=== PATIENT | female | born 1945 | race Caucasian/White ===

== ENCOUNTER → 2016-06-22 | Outpatient (CLI) | payer OTHER ==
[~2016-06-22] MED LIST: AMLO10TA2 PO; ASPI-231 PO; DIPH50TA9 PO; FLUO10CA15 PO; FURO40TA4 PO; INSLISPI SC; ISOS30TA17 PO; LEVO75TA6 PO; LIDO5DIS21 TOP; MET50T PO; NOR10T PO; NORT25CA OR; PANT40TA2 PO; PRAV20TA3 OR
[2016-06-22 12:42] LABS: Urine Bilirubin Negative (Negative); Urine Blood Negative /uL (Negative); Urine Color Yellow (Yellow); Urine Glucose Normal (Normal); Urine Ketone Negative (Negative); Urine Nitrite Negative (Negative); Urine RBC <1 /hpf (0 - 4); Urine Urobilinogen Normal (Negative)
== END | disposition home or self-care (01) ==
LOC: LAB 11:01
PROVIDERS: ATTEND Internal Medicine
DX: N39.0 Urinary tract infection, site not specified (principal)
CPT/HCPCS: 81001

== ENCOUNTER → 2016-11-16 | Outpatient (CLI) | payer OTHER | END | disposition home or self-care (01) | LOC: XY 14:01 | PROVIDERS: ATTEND Internal Medicine | DX: I70.90 Unspecified atherosclerosis (principal); R42 Dizziness and giddiness | CPT/HCPCS: 93886 ==

== ENCOUNTER 2017-06-17 11:32 | Emergency (ER) | payer MEDICARE, OTHER ==
[~2017-06-17] VITALS: Ht 172.7 cm; Wt 108.0 kg
[2017-06-17] MEDS ORDERED: ASPirin 81 mg TAB PO ONE (12:30)
[2017-06-17 12:59] LABS: Basophils # (auto) 0.1 uL; Basophils % (auto) 0.6 % (0.0-2.0); Eosinophils # (auto) 0.1 uL; Eosinophils % (auto) 0.5 % (0.0-7.0); Hematocrit 46.8 % (36.0-46.0); Hemoglobin 15.4 g/dL (12.2-16.2); Lymphocytes # (auto) 3.6 uL; Lymphocytes % (auto) 31.8 % (10.0-50.0); Mean Corpuscular Hemoglobin 27.8 pg (28.0-32.0); Mean Corpuscular Hgb Conc. 32.9 g/dL (32.0-36.0); Mean Corpuscular Volume 84.5 fL (80.0-100.0); Monocytes # (auto) 0.9 uL; Monocytes % (auto) 7.7 % (0.0-12.0); Neutrophils # (auto) 6.7 uL; Neutrophils % (auto) 59.4 % (37.0-80.0); Platelet Count (auto) 395 10^3/uL (140-450); Red Blood Cells 5.53 10^6/uL (4.0-5.20); Red Cell Distribution Width 13.7 % (11.8-14.3); White Blood Cell 11.2 10^3/uL (4.4-10.8)
[2017-06-17 13:20] LABS: Alanine Aminotransferase 18 U/L (13-56); Albumin 4.2 g/dL (3.4-5.0); Alkaline Phosphatase 108 U/L (45-117); Anion Gap 14 (5-15); Aspartate Aminotransferase 18 U/L (15-37); BUN/Creatinine Ratio 12.4; Bilirubin, Total 0.5 mg/dL (0.2-1.0); Blood Urea Nitrogen 20 mg/dL (7-18); Calcium 9.2 mg/dL (8.5-10.1); Carbon Dioxide 26 mmol/L (21-32); Chloride 89 mmol/L (98-107); GFR African American 41 mL/min; GFR Non-African American 34 mL/min; Glucose 224 mg/dL (74-106); Magnesium 1.9 mg/dL (1.6-2.6); Potassium 3.6 mmol/L (3.5-5.1); Sodium 129 mmol/L (136-145); Total Protein 9.1 g/dL (6.4-8.2)
[2017-06-17 14:07] VITALS: BP 170/79
== END 2017-06-17 14:24 | disposition home or self-care (01) ==
LOC: ER 11:32
DX: R07.89 Other chest pain (principal); I11.0 Hypertensive heart disease with heart failure; I50.9 Heart failure, unspecified; I25.2 Old myocardial infarction; E07.89 Other specified disorders of thyroid; E11.9 Type 2 diabetes mellitus without complications; Z86.73 Personal history of transient ischemic attack (TIA), and cerebral infarction without residual deficits; Z85.820 Personal history of malignant melanoma of skin; Z79.899 Other long term (current) drug therapy; Z90.710 Acquired absence of both cervix and uterus; Z90.89 Acquired absence of other organs
CPT/HCPCS: 36415; 71046; 80053; 83735; 84484; 85025; 93005

== ENCOUNTER → 2017-07-11 | Outpatient (CLI) | payer OTHER ==
[2017-07-11 10:55] LABS: Basophils # (auto) 0 uL; Basophils % (auto) 0.5 % (0.0-2.0); Eosinophils # (auto) 0.2 uL; Eosinophils % (auto) 1.9 % (0.0-7.0); Hematocrit 41.6 % (36.0-46.0); Hemoglobin 13.6 g/dL (12.2-16.2); Lymphocytes # (auto) 3.4 uL; Lymphocytes % (auto) 38.8 % (10.0-50.0); Mean Corpuscular Hemoglobin 27.8 pg (28.0-32.0); Mean Corpuscular Hgb Conc. 32.8 g/dL (32.0-36.0); Mean Corpuscular Volume 84.7 fL (80.0-100.0); Monocytes # (auto) 0.6 uL; Monocytes % (auto) 6.5 % (0.0-12.0); Neutrophils # (auto) 4.6 uL; Neutrophils % (auto) 52.3 % (37.0-80.0); Nucleated Red Blood Cells % 0.1 %; Platelet Count (auto) 378 10^3/uL (140-450); Red Blood Cells 4.91 10^6/uL (4.0-5.20); Red Cell Distribution Width 13.7 % (11.8-14.3); White Blood Cell 8.7 10^3/uL (4.4-10.8)
[2017-07-11 11:28] LABS: Urine Bacteria NONE SEEN /hpf (None Seen); Urine Blood Negative /uL (Negative); Urine Specific Gravity 1.022 (1.001-1.035); Urine WBC 1 /hpf (0 - 5)
[2017-07-11 14:21] LABS: Albumin 3.6 g/dL (3.4-5.0); BUN/Creatinine Ratio 18.5; Bilirubin, Total 0.5 mg/dL (0.2-1.0); Potassium 4.5 mmol/L (3.5-5.1); Total Protein 7.9 g/dL (6.4-8.2)
== END | disposition home or self-care (01) ==
LOC: LAB 10:33
PROVIDERS: ATTEND Physician Assistant
DX: I10 Essential (primary) hypertension (principal); E11.65 Type 2 diabetes mellitus with hyperglycemia; M17.12 Unilateral primary osteoarthritis, left knee; Z79.4 Long term (current) use of insulin
CPT/HCPCS: 36415; 80053; 80061; 81001; 83036; 85025

== ENCOUNTER → 2017-07-13 | Outpatient (CLI) | payer OTHER | END | disposition home or self-care (01) | LOC: LAB 15:03 | PROVIDERS: ATTEND Physician Assistant | DX: Z00.01 Encounter for general adult medical examination with abnormal findings (principal); I10 Essential (primary) hypertension; E11.9 Type 2 diabetes mellitus without complications | CPT/HCPCS: 82270 ==

== ENCOUNTER → 2017-08-11 | Outpatient (CLI) | payer OTHER | END | disposition home or self-care (01) | LOC: LAB 12:16 | PROVIDERS: ATTEND Physician Assistant | DX: Z00.01 Encounter for general adult medical examination with abnormal findings (principal); E11.3393 Type 2 diabetes mellitus with moderate nonproliferative diabetic retinopathy without macular edema, bilateral; I10 Essential (primary) hypertension; Z79.4 Long term (current) use of insulin | CPT/HCPCS: 82043 ==

== ENCOUNTER → 2017-09-21 | Outpatient (CLI) | payer OTHER ==
[2017-09-21 15:38] LABS: Basophils # (auto) 0.1 uL; Basophils % (auto) 0.6 % (0.0-2.0); Eosinophils # (auto) 0.3 uL; Eosinophils % (auto) 3.5 % (0.0-7.0); Hematocrit 43.2 % (36.0-46.0); Hemoglobin 14.1 g/dL (12.2-16.2); Lymphocytes % (auto) 36.4 % (10.0-50.0); Mean Corpuscular Hemoglobin 27.8 pg (28.0-32.0); Mean Corpuscular Hgb Conc. 32.6 g/dL (32.0-36.0); Mean Corpuscular Volume 85.5 fL (80.0-100.0); Monocytes # (auto) 0.7 uL; Monocytes % (auto) 8.1 % (0.0-12.0); Neutrophils # (auto) 4.3 uL; Neutrophils % (auto) 51.4 % (37.0-80.0); Nucleated Red Blood Cells % 0.1 %; Platelet Count (auto) 393 10^3/uL (140-450); Red Blood Cells 5.06 10^6/uL (4.0-5.20); Red Cell Distribution Width 13.7 % (11.8-14.3); White Blood Cell 8.4 10^3/uL (4.4-10.8)
[2017-09-21 16:03] LABS: Albumin 3.9 g/dL (3.4-5.0); BUN/Creatinine Ratio 14.8; Bilirubin, Total 0.4 mg/dL (0.2-1.0); CRP High Sensitivity 0.26 mg/dL (< 0.3); Calcium 9.2 mg/dL (8.5-10.1); Potassium 4.1 mmol/L (3.5-5.1)
[2017-09-21 16:07] LABS: Urine Bacteria FEW /hpf (None Seen); Urine Blood Negative /uL (Negative); Urine Hyaline Cast FEW /lpf (0 - 2); Urine Specific Gravity 1.013 (1.001-1.035); Urine WBC 7 /hpf (0 - 5)
[2017-09-21 16:10] LABS: Free T3 2.71 pg/mL (2.3-4.2); Free T4 (Free Thyroxine) 1.28 ng/dL (0.89-1.76); T3 Total 1.1 ng/mL (0.60-1.81)
== END | disposition home or self-care (01) ==
LOC: LAB 15:13
PROVIDERS: ATTEND Internal Medicine
DX: I10 Essential (primary) hypertension (principal); E78.5 Hyperlipidemia, unspecified; E11.65 Type 2 diabetes mellitus with hyperglycemia; Z79.4 Long term (current) use of insulin
CPT/HCPCS: 36415; 80053; 80061; 81001; 82306; 82607; 83036; 84439; 84443; 84480; 84481; 85025; 86141

== ENCOUNTER → 2017-10-23 | Outpatient (CLI) | payer OTHER ==
[~2017-10-23] VITALS: Ht 172.7 cm; Wt 111.1 kg
[~2017-10-23] MED LIST changes: +ADENOSINE 93 MG in GIVE UN-DILUTED 0 ML IV ONE
[2017-10-23 11:13] VITALS: BP 149/58
[2017-10-23 11:35] VITALS: BP 149/58
== END | disposition home or self-care (01) ==
LOC: XY 09:34
PROVIDERS: ATTEND Internal Medicine
DX: I25.10 Atherosclerotic heart disease of native coronary artery without angina pectoris (principal); E11.9 Type 2 diabetes mellitus without complications; I10 Essential (primary) hypertension; E78.5 Hyperlipidemia, unspecified; Z79.4 Long term (current) use of insulin
CPT/HCPCS: 78452; 93017; A9500; J0153

== ENCOUNTER → 2017-10-31 | Outpatient (CLI) | payer OTHER ==
[~2017-10-31] MED LIST changes: -ADENOSINE 93 MG in GIVE UN-DILUTED 0 ML IV ONE
== END ==
LOC: XYW 08:43
PROVIDERS: ATTEND Internal Medicine
DX: I25.10 Atherosclerotic heart disease of native coronary artery without angina pectoris (principal); I11.0 Hypertensive heart disease with heart failure; E78.5 Hyperlipidemia, unspecified; E03.9 Hypothyroidism, unspecified; E11.65 Type 2 diabetes mellitus with hyperglycemia; E11.22 Type 2 diabetes mellitus with diabetic chronic kidney disease; Z79.899 Other long term (current) drug therapy
CPT/HCPCS: 93306

== ENCOUNTER → 2018-05-23 | Outpatient (CLI) | payer OTHER ==
[~2018-05-23] MED LIST changes: +AMLO10TA12 PO; -AMLO10TA2 PO
[2018-05-23 14:47] LABS: Basophils # (auto) 0 uL; Basophils % (auto) 0.6 % (0.0-2.0); Eosinophils # (auto) 0.3 uL; Eosinophils % (auto) 4.1 % (0.0-7.0); Hematocrit 41.8 % (36.0-46.0); Hemoglobin 13.8 g/dL (12.2-16.2); Lymphocytes # (auto) 2.3 uL; Lymphocytes % (auto) 31.7 % (10.0-50.0); Mean Corpuscular Hemoglobin 28.2 pg (28.0-32.0); Mean Corpuscular Volume 85.3 fL (80.0-100.0); Monocytes # (auto) 0.6 uL; Monocytes % (auto) 8.2 % (0.0-12.0); Neutrophils % (auto) 55.4 % (37.0-80.0); Nucleated Red Blood Cells % 0.1 %; Platelet Count (auto) 406 10^3/uL (140-450); Red Cell Distribution Width 13.8 % (11.8-14.3); White Blood Cell 7.3 10^3/uL (4.4-10.8)
[2018-05-23 15:02] LABS: Urine Bacteria NONE SEEN /hpf (None Seen); Urine Blood Negative /uL (Negative); Urine Specific Gravity 1.014 (1.001-1.035); Urine WBC 1 /hpf (0 - 5)
[2018-05-23 15:24] LABS: Albumin 3.5 g/dL (3.4-5.0); Calcium 8.6 mg/dL (8.5-10.1); Potassium 4.1 mmol/L (3.5-5.1)
[2018-05-23 15:29] LABS: BUN/Creatinine Ratio 15.6; Bilirubin, Total 0.4 mg/dL (0.2-1.0); CRP High Sensitivity 0.67 mg/dL (< 0.3); Total Protein 7.6 g/dL (6.4-8.2)
[2018-05-23 15:32] LABS: Free T4 (Free Thyroxine) 1.37 ng/dL (0.89-1.76)
[2018-05-23 15:33] LABS: T3 Total 1.08 ng/mL (0.60-1.81)
== END | disposition home or self-care (01) ==
LOC: LAB 13:54
PROVIDERS: ATTEND Internal Medicine
CPT/HCPCS: 36415; 80053; 80061; 81001; 82306; 82607; 83036; 84439; 84443; 84480; 85025; 86141

== ENCOUNTER → 2018-09-26 | Outpatient (CLI) | payer OTHER, MEDICARE ==
[2018-09-26 14:01] LABS: Basophils # (auto) 0 uL; Basophils % (auto) 0.6 % (0.0-2.0); Eosinophils # (auto) 0.1 uL; Hematocrit 43.8 % (36.0-46.0); Hemoglobin 14.5 g/dL (12.2-16.2); Lymphocytes # (auto) 2.3 uL; Lymphocytes % (auto) 30.9 % (10.0-50.0); Mean Corpuscular Hemoglobin 28.3 pg (28.0-32.0); Mean Corpuscular Hgb Conc. 33.2 g/dL (32.0-36.0); Mean Corpuscular Volume 85.4 fL (80.0-100.0); Monocytes # (auto) 0.5 uL; Monocytes % (auto) 7.1 % (0.0-12.0); Neutrophils # (auto) 4.5 uL; Neutrophils % (auto) 59.4 % (37.0-80.0); Platelet Count (auto) 358 10^3/uL (140-450); Red Blood Cells 5.12 10^6/uL (4.0-5.20); Red Cell Distribution Width 13.5 % (11.8-14.3); White Blood Cell 7.6 10^3/uL (4.4-10.8)
[2018-09-26 14:03] LABS: Urine Bacteria NONE SEEN /hpf (None Seen); Urine Blood Negative /uL (Negative); Urine Hyaline Cast FEW /lpf (0 - 2); Urine Specific Gravity 1.008 (1.001-1.035); Urine WBC 1 /hpf (0 - 5)
[2018-09-26 14:22] LABS: Albumin 3.7 g/dL (3.4-5.0); Calcium 9.4 mg/dL (8.5-10.1); Potassium 4.2 mmol/L (3.5-5.1)
[2018-09-26 14:26] LABS: BUN/Creatinine Ratio 15.7; Bilirubin, Total 0.4 mg/dL (0.2-1.0); Total Protein 7.6 g/dL (6.4-8.2)
== END | disposition home or self-care (01) ==
LOC: LAB 13:38
PROVIDERS: ATTEND Physician Assistant
DX: E03.9 Hypothyroidism, unspecified (principal); E78.5 Hyperlipidemia, unspecified; M12.9 Arthropathy, unspecified; I11.0 Hypertensive heart disease with heart failure; I50.32 Chronic diastolic (congestive) heart failure; M79.7 Fibromyalgia; E11.3393 Type 2 diabetes mellitus with moderate nonproliferative diabetic retinopathy without macular edema, bilateral
CPT/HCPCS: 36415; 80053; 80061; 81001; 83036; 84443; 85025

== ENCOUNTER → 2018-10-18 | Outpatient (CLI) | payer OTHER | END | disposition home or self-care (01) | LOC: XYW 07:31 | PROVIDERS: ATTEND Internal Medicine | DX: R06.02 Shortness of breath (principal) | CPT/HCPCS: 93306 ==

== ENCOUNTER → 2018-10-30 | Outpatient (CLI) | payer MEDICARE, OTHER | END | disposition home or self-care (01) | LOC: XY 08:27 | PROVIDERS: ATTEND Internal Medicine | DX: R09.89 Other specified symptoms and signs involving the circulatory and respiratory systems (principal) | CPT/HCPCS: 93886 ==

== ENCOUNTER → 2018-11-26 | Outpatient (CLI) | payer OTHER | END | disposition home or self-care (01) | LOC: LAB 13:01 | PROVIDERS: ATTEND Physician Assistant | DX: Z12.11 Encounter for screening for malignant neoplasm of colon (principal); E11.9 Type 2 diabetes mellitus without complications | CPT/HCPCS: 82270 ==

== ENCOUNTER → 2018-12-05 | Outpatient (CLI) | payer OTHER, MEDICARE ==
[~2018-12-05] VITALS: Ht 170.2 cm; Wt 108.9 kg
[~2018-12-05] MED LIST changes: +ADENOSINE 90 MG in GIVE UN-DILUTED 0 ML IV ONE; -AMLO10TA12 PO; +AMLO10TA13 PO
== END | disposition home or self-care (01) ==
LOC: XY 12:32
PROVIDERS: ATTEND Internal Medicine
DX: I11.0 Hypertensive heart disease with heart failure (principal); I50.9 Heart failure, unspecified; R06.02 Shortness of breath; E11.9 Type 2 diabetes mellitus without complications; R09.89 Other specified symptoms and signs involving the circulatory and respiratory systems; M79.7 Fibromyalgia; R00.1 Bradycardia, unspecified
CPT/HCPCS: 78452; 93017; A9500; J0153

== ENCOUNTER 2019-01-30 08:30 | Day surgery (SDC) | payer OTHER ==
[2019-01-28 12:28] LABS: Urine WBC None Seen /hpf (0 - 5)
[2019-01-28 12:32] LABS: Basophils # (auto) 0 uL; Basophils % (auto) 0.5 % (0.0-2.0); Eosinophils # (auto) 0.3 uL; Eosinophils % (auto) 2.7 % (0.0-7.0); Hematocrit 43.3 % (36.0-46.0); Hemoglobin 14.4 g/dL (12.2-16.2); Lymphocytes # (auto) 3.4 uL; Lymphocytes % (auto) 34.3 % (10.0-50.0); Mean Corpuscular Hemoglobin 29.2 pg (28.0-32.0); Mean Corpuscular Hgb Conc. 33.3 g/dL (32.0-36.0); Mean Corpuscular Volume 87.8 fL (80.0-100.0); Monocytes # (auto) 0.9 uL; Neutrophils # (auto) 5.2 uL; Neutrophils % (auto) 53.5 % (37.0-80.0); Platelet Count (auto) 379 10^3/uL (140-450); Red Blood Cells 4.93 10^6/uL (4.0-5.20); Red Cell Distribution Width 12.9 % (11.8-14.3); White Blood Cell 9.8 10^3/uL (4.4-10.8)
[2019-01-28 12:36] LABS: Urine Bacteria NONE SEEN /hpf (None Seen); Urine Blood Negative /uL (Negative); Urine Specific Gravity 1.008 (1.001-1.035)
[2019-01-28 12:51] LABS: INR 0.99 (0.9-1.15); Partial Thromboplastin Time 30.8 sec (23.64-32.05)
[2019-01-28 13:18] LABS: BUN/Creatinine Ratio 20.3; Calcium 9.7 mg/dL (8.5-10.1); Potassium 4.1 mmol/L (3.5-5.1)
[2019-01-28 13:20] LABS: Bilirubin, Total 0.4 mg/dL (0.2-1.0); Total Protein 8.3 g/dL (6.4-8.2)
[~2019-01-30] VITALS: Ht 171.4 cm; Wt 109.8 kg
[~2019-01-30 08:30] MED LIST changes: -ADENOSINE 90 MG in GIVE UN-DILUTED 0 ML IV ONE; -ASPI-231 PO; -DIPH50TA9 PO; -INSLISPI SC; +INSUINJ2 SC; +LEVO100T8 PO; -LEVO75TA6 PO; +METF-929 PO; -PRAV20TA3 OR; +PRAV20TA3 PO; +RANI-226 PO
[2019-01-30] MEDS ORDERED: HEPARIN IN NS 1000Units/500mL 1,500 ML ONE (10:04)
[2019-01-30] MEDS ORDERED: IOHEXOL 350 MG/ML 100ML IJ ONE ×2 (10:04→10:32)
[2019-01-30] MEDS ORDERED: LIDOCAINE 2%HCL (LOCAL ANESTH.) INJ 20ML MDV ONE (10:04)
[2019-01-30] MEDS ORDERED: GLYCOPYRROLATE 0.2 MG/ML 1ML VIAL ONE (10:31)
[2019-01-30] MEDS ORDERED: ANGIOMAX 250 MG VIAL IV ONE (10:31)
[2019-01-30] MEDS ORDERED: PHENYLEPHRINE HCL 10 MG/ML VL ONE (10:31)
[2019-01-30] MEDS ORDERED: ATROPINE SULFATE 1 MG/1 ML VIAL ONE (10:31)
[2019-01-30] MEDS ORDERED: MIDAZOLAM HCL 1MG/1ML-2 ML VIAL ONE (10:32)
[2019-01-30] MEDS ORDERED: SODIUM CHL 0.9% 0 ML ONE (10:32)
[2019-01-30] MEDS ORDERED: DOPamine 1600MCG/ML D5W 0 ML IV ONE (10:32)
[2019-01-30] MEDS ORDERED: fentaNYL CITRATE 100 MCG/2 ML VL ONE (10:32)
[2019-01-30] MEDS ORDERED: IODIXANOL 320MG/ML 100ML BTL IV ONE (10:37)
== END 2019-01-30 14:06 | disposition home or self-care (01) ==
LOC: CATH 08:30
PROVIDERS: ATTEND Internal Medicine
DX: I25.10 Atherosclerotic heart disease of native coronary artery without angina pectoris (principal); I65.22 Occlusion and stenosis of left carotid artery; I65.01 Occlusion and stenosis of right vertebral artery; E11.9 Type 2 diabetes mellitus without complications; I11.0 Hypertensive heart disease with heart failure; I50.9 Heart failure, unspecified; E78.5 Hyperlipidemia, unspecified; Z86.73 Personal history of transient ischemic attack (TIA), and cerebral infarction without residual deficits; Z96.651 Presence of right artificial knee joint; Z79.899 Other long term (current) drug therapy; Z79.4 Long term (current) use of insulin
CPT/HCPCS: 36222; 36415; 80053; 81001; 85025; 85610; 85730; 93458; C1760; C1894; J1644; J2250; J3010; Q9967; 99152; J0461

== ENCOUNTER → 2019-11-27 | Outpatient (CLI) | payer OTHER ==
[2019-11-27 15:46] LABS: Basophils # (auto) 0.1 10 ^3/uL (0-0.2); Basophils % (auto) 0.8 % (0.0-2.0); Eosinophils # (auto) 0.1 10 ^3/uL (0-0.8); Eosinophils % (auto) 1.4 % (0.0-7.0); Hematocrit 44.3 % (36.0-46.0); Hemoglobin 14.6 g/dL (12.2-16.2); Lymphocytes # (auto) 3.3 10 ^3/uL (0.4-5.4); Lymphocytes % (auto) 37.7 % (10.0-50.0); Mean Corpuscular Hemoglobin 28.7 pg (28.0-32.0); Mean Corpuscular Hgb Conc. 32.9 g/dL (32.0-36.0); Mean Corpuscular Volume 87.5 fL (80.0-100.0); Monocytes # (auto) 0.7 10 ^3/uL (0-1.3); Monocytes % (auto) 7.9 % (0.0-12.0); Neutrophils # (auto) 4.5 10 ^3/uL (1.6-8.6); Neutrophils % (auto) 52.2 % (37.0-80.0); Nucleated Red Blood Cells % 0.1 %; Platelet Count (auto) 331 10^3/uL (140-450); Red Blood Cells 5.07 10^6/uL (4.0-5.20); Red Cell Distribution Width 12.9 % (11.8-14.3); White Blood Cell 8.7 10^3/uL (4.4-10.8)
[2019-11-27 16:09] LABS: Albumin 3.9 g/dL (3.4-5.0); Calcium 9.6 mg/dL (8.5-10.1)
[2019-11-27 16:13] LABS: BUN/Creatinine Ratio 18.1; Bilirubin, Total 0.5 mg/dL (0.2-1.0)
== END | disposition home or self-care (01) ==
LOC: LAB 15:28
PROVIDERS: ATTEND Physician Assistant
DX: E11.22 Type 2 diabetes mellitus with diabetic chronic kidney disease (principal); N18.3 Chronic kidney disease, stage 3 (moderate); I50.32 Chronic diastolic (congestive) heart failure; E78.5 Hyperlipidemia, unspecified; G45.9 Transient cerebral ischemic attack, unspecified
CPT/HCPCS: 36415; 80053; 80061; 82043; 83036; 85025

== ENCOUNTER → 2020-01-08 | Day surgery (SDC) | payer OTHER ==
[2020-01-02 15:35] LABS: Basophils # (auto) 0 10 ^3/uL (0-0.2); Basophils % (auto) 0.5 % (0.0-2.0); Eosinophils # (auto) 0.2 10 ^3/uL (0-0.8); Eosinophils % (auto) 2.2 % (0.0-7.0); Hematocrit 42.5 % (36.0-46.0); Hemoglobin 13.8 g/dL (12.2-16.2); Lymphocytes # (auto) 3.8 10 ^3/uL (0.4-5.4); Lymphocytes % (auto) 38.6 % (10.0-50.0); Mean Corpuscular Hemoglobin 28.8 pg (28.0-32.0); Mean Corpuscular Hgb Conc. 32.6 g/dL (32.0-36.0); Mean Corpuscular Volume 88.5 fL (80.0-100.0); Monocytes # (auto) 0.9 10 ^3/uL (0-1.3); Monocytes % (auto) 8.7 % (0.0-12.0); Nucleated Red Blood Cells % 0.1 %; Platelet Count (auto) 376 10^3/uL (140-450); Red Cell Distribution Width 13.1 % (11.8-14.3); White Blood Cell 9.9 10^3/uL (4.4-10.8)
[2020-01-02 16:04] LABS: INR 1.02 (0.9-1.15); Partial Thromboplastin Time 32.7 sec (23.0-31.2)
[~2020-01-08] VITALS: Ht 170.2 cm; Wt 99.8 kg
[~2020-01-08] MED LIST changes: +ASPI-543 PO; +CANA300T PO; +FAMO20TA10 PO; -INSUINJ2 SC; -LEVO100T8 PO; +LEVO88TA4 PO; -LIDO5DIS21 TOP; +SODIUM CHLORIDE LOCK 10 ML ONE; +diphenhdrAMINE HCL 50 MG/1 ML VL ONE
[2020-01-08] MEDS: fentaNYL CITRATE 100 MCG/2 ML VL ONE ×3 (13:47→13:52)
[2020-01-08] MEDS: MIDAZOLAM HCL 5 MG/ML-1ML VIAL ONE ×3 (13:47→13:52)
[2020-01-08 14:40] VITALS: BP 120/60
== END | disposition home or self-care (01) ==
LOC: GI 12:40
PROVIDERS: ATTEND Internal Medicine Gastroenterology
DX: Z12.11 Encounter for screening for malignant neoplasm of colon (principal); D12.3 Benign neoplasm of transverse colon; K57.30 Diverticulosis of large intestine without perforation or abscess without bleeding; K63.89 Other specified diseases of intestine; K21.9 Gastro-esophageal reflux disease without esophagitis; K44.9 Diaphragmatic hernia without obstruction or gangrene; E11.22 Type 2 diabetes mellitus with diabetic chronic kidney disease; N18.3 Chronic kidney disease, stage 3 (moderate); E66.9 Obesity, unspecified; M79.7 Fibromyalgia; Z20.828 Contact with and (suspected) exposure to other viral communicable diseases; Z86.010 Personal history of colon polyps; Z79.82 Long term (current) use of aspirin; Z86.73 Personal history of transient ischemic attack (TIA), and cerebral infarction without residual deficits; Z90.710 Acquired absence of both cervix and uterus; Z68.34 Body mass index [BMI] 34.0-34.9, adult
CPT/HCPCS: 36415; 45385; 82962; 85025; 85610; 85730; 88305; J2250; J3010; J7030; U0003; 99152; 99153

== ENCOUNTER 2020-04-15 17:23 | Inpatient (IN) | payer OTHER ==
[~2020-04-15] VITALS: Ht 170.2 cm; Wt 108.0 kg
[~2020-04-15 17:23] MED LIST changes: -SODIUM CHLORIDE LOCK 10 ML ONE; -diphenhdrAMINE HCL 50 MG/1 ML VL ONE
[2020-04-15] MEDS ORDERED: AZITHROMYCIN 500MG/ 250ML 250 ML IV ONE (19:30)
[2020-04-15] MEDS ORDERED: DEXTROSE (50%) 50ML SYRG IV PRN (21:00)
[2020-04-15] MEDS ORDERED: NITROGLYCERIN 0.4 MG SL TAB SL PRN (21:00)
[2020-04-15] MEDS ORDERED: MORPHINE SULF INJ 2 MG/ML SYRINGE 1ML IV PRN (21:00)
[2020-04-15] MEDS ORDERED: ACETAMINOPHEN 500 MG TAB PO PRN (21:00)
[2020-04-15] MEDS ORDERED: HYDROcodone-ACET 5/325MG TAB PO PRN (21:00)
[2020-04-15] MEDS ORDERED: ENOXAPARIN SOD 100 MG/1 ML SYRINGE SC ONE (21:00)
[2020-04-15] MEDS ORDERED: DOCUSATE SOD 100 MG CAP PO PRN (21:00)
[2020-04-15] MEDS ORDERED: ACETAMINOPHEN 325 MG TAB PO PRN (21:00)
[2020-04-15] MEDS ORDERED: VANCOMYCIN PER PHARMACY 0 MG IV SCH (21:00)
[2020-04-15] MEDS ORDERED: ALUM & MAG HYDROX-SIMETH LIQ(MAALOX) 30 ML PO PRN (21:00)
[2020-04-15] MEDS ORDERED: REMDESIVIR PER PHARMACY IV SCH (21:00)
[2020-04-15 21:13] LABS: BUN/Creatinine Ratio 14.8; Calcium 8.1 mg/dL (8.5-10.1); Potassium 4.6 mmol/L (3.5-5.1)
[2020-04-15 21:15] LABS: Basophils # (auto) 0 10 ^3/uL (0-0.2); Basophils % (auto) 0.2 % (0.0-2.0); Eosinophils # (auto) 0 10 ^3/uL (0-0.8); Hematocrit 41.1 % (36.0-46.0); Hemoglobin 13.3 g/dL (12.2-16.2); Lymphocytes # (auto) 2.2 10 ^3/uL (0.4-5.4); Lymphocytes % (auto) 21.3 % (10.0-50.0); Mean Corpuscular Hemoglobin 28.1 pg (28.0-32.0); Mean Corpuscular Hgb Conc. 32.3 g/dL (32.0-36.0); Mean Corpuscular Volume 87.3 fL (80.0-100.0); Monocytes # (auto) 1.3 10 ^3/uL (0-1.3); Monocytes % (auto) 12.4 % (0.0-12.0); Neutrophils # (auto) 6.9 10 ^3/uL (1.6-8.6); Neutrophils % (auto) 66.1 % (37.0-80.0); Nucleated Red Blood Cells % 0.1 %; Platelet Count (auto) 414 10^3/uL (140-450); Red Blood Cells 4.71 10^6/uL (4.0-5.20); Red Cell Distribution Width 12.9 % (11.8-14.3); White Blood Cell 10.4 10^3/uL (4.4-10.8)
[2020-04-15] MEDS ORDERED: PIPERACILLIN-TAZOB 3.375GM 100 ML IV ONE (21:15)
[2020-04-15 21:18] LABS: Bilirubin, Total 0.5 mg/dL (0.2-1.0)
[2020-04-15 21:41] LABS: INR 1.08 (0.9-1.15); Partial Thromboplastin Time 37.6 sec (23.0-31.2)
[2020-04-15] MEDS: BUDESONIDE (INHALATION) 180 MCG IH IN SCH (22:00)
[2020-04-15] MEDS ORDERED: hydrALAZINE HCL 20 MG/ML VL IV PRN (22:00)
[2020-04-15] MEDS: NORTRIPTYLINE HCL 10 MG CAP PO SCH (22:00)
[2020-04-15] MEDS: ALBUTEROL SULF HFA 90MCG INH 200DOSE IN SCH (22:00)
[2020-04-16] MEDS ORDERED: VANCOMYCIN 1GM/250ML 250 ML IV SCH (02:00)
[2020-04-16 02:40] LABS: Lactic Acid w/Reflex 2.3 mmol/L (0.4-2.0)
[2020-04-16 02:54] LABS: CRP High Sensitivity 18.9 mg/dL (< 0.3)
[2020-04-16 03:08] VITALS: BP 139/47
[2020-04-16] MEDS: ALBUTEROL SULF HFA 90MCG INH 200DOSE IN SCH (06:00)
[2020-04-16] MEDS ORDERED: FUROSEMIDE 20 MG/2 ML VIAL IV SCH (06:00)
[2020-04-16] MEDS ORDERED: PIPERACILLIN-TAZOB 3.375GM 100 ML IV SCH (06:00)
[2020-04-16 06:21] LABS: Basophils # (auto) 0 10 ^3/uL (0-0.2); Basophils % (auto) 0.3 % (0.0-2.0); Eosinophils # (auto) 0 10 ^3/uL (0-0.8); Hematocrit 43.4 % (36.0-46.0); Hemoglobin 14.4 g/dL (12.2-16.2); Lymphocytes # (auto) 2.2 10 ^3/uL (0.4-5.4); Lymphocytes % (auto) 18.8 % (10.0-50.0); Mean Corpuscular Hemoglobin 28.8 pg (28.0-32.0); Mean Corpuscular Hgb Conc. 33.1 g/dL (32.0-36.0); Mean Corpuscular Volume 86.8 fL (80.0-100.0); Monocytes # (auto) 1.3 10 ^3/uL (0-1.3); Neutrophils # (auto) 8.1 10 ^3/uL (1.6-8.6); Neutrophils % (auto) 69.9 % (37.0-80.0); Nucleated Red Blood Cells % 1.2 %; Platelet Count (auto) 434 10^3/uL (140-450); White Blood Cell 11.6 10^3/uL (4.4-10.8)
[2020-04-16 06:45] LABS: Calcium 8.7 mg/dL (8.5-10.1); Potassium 4.5 mmol/L (3.5-5.1)
[2020-04-16] MEDS: ATORVASTATIN 20 MG TAB PO SCH ×2 (06:49→21:18)
[2020-04-16] MEDS: SODIUM CHLOR 0.9% PF (SALINE LOCK) 10ML VIAL/SYR IV SCH ×4 (06:49→21:18)
[2020-04-16 06:50] LABS: BUN/Creatinine Ratio 15.7; Bilirubin, Total 0.6 mg/dL (0.2-1.0); Total Protein 7.8 g/dL (6.4-8.2)
[2020-04-16] MEDS: InsuLIN REG 1unit/0.01ml Soln (100units/ml) SC SCH ×5 (06:51→22:00)
[2020-04-16] MEDS: ACCU-CHEK COMFORT CURVE STRIP VI SCH ×5 (06:53→22:00)
[2020-04-16] MEDS: LEVOTHYROXINE SODIUM 100 MCG TAB PO SCH (07:12)
[2020-04-16] MEDS: BUDESONIDE (INHALATION) 180 MCG IH IN SCH ×3 (07:24→19:46)
[2020-04-16] MEDS: FAMOTIDINE (10MG/ML) 2ML VL IV SCH ×2 (07:35→21:17)
[2020-04-16] MEDS: CALCIUM W/VIT D (600MG/400IU) TAB PO SCH ×2 (08:00→17:55)
[2020-04-16] MEDS: ZINC SULFATE 220mg CAP or TAB PO SCH (08:48)
[2020-04-16] MEDS: DexAMETHasone SOD PHOS 10MG/1ML VIAL INJ IV SCH (08:48)
[2020-04-16] MEDS: FLUoxetine HCL 20 MG CAP PO SCH (08:49)
[2020-04-16] MEDS: METOPROLOL SUCCINATE XL 50 MG TAB PO SCH (08:49)
[2020-04-16] MEDS: CHOLECALCIFEROL (VITD3) 2,000 UNIT CAP PO SCH (08:49)
[2020-04-16] MEDS: ASCORBIC ACID 1,000 MG TAB PO SCH (08:49)
[2020-04-16] MEDS: MORPHINE SULF INJ 2 MG/ML SYRINGE 1ML IV PRN ×2 (08:50→21:58)
[2020-04-16] MEDS ORDERED: ISOSORBIDE MONONITRATE ER 60 MG TAB PO SCH (10:00)
[2020-04-16] MEDS ORDERED: FUROSEMIDE 40 MG/4 ML VIAL IV ONE (11:45)
[2020-04-16] MEDS ORDERED: levoFLOXacin 750MG 150 ML IV ONE (11:45)
[2020-04-16] MEDS ORDERED: REMDESIVIR PER PHARMACY IV SCH (11:45)
[2020-04-16] MEDS ORDERED: guaiFENesin-DM 100/10mg/5ml SYR PO PRN (14:30)
[2020-04-16 15:35] LABS: Urine Bacteria FEW /hpf (None Seen); Urine Blood TRACE /uL (Negative); Urine Specific Gravity 1.016 (1.001-1.035); Urine WBC 1 /hpf (0 - 5)
[2020-04-16 15:50] LABS: Amphetamine Screen, Urine NEGATIVE (NEGATIVE); Barbiturate Scree,Urine NEGATIVE (NEGATIVE); Benzodiazephine Screen, Urine NEGATIVE (NEGATIVE); Cannabinoid Screen, Urine NEGATIVE (NEGATIVE); Cocaine Screen, Urine NEGATIVE (NEGATIVE); Opiate Scree,Urine POSITIVE (NEGATIVE); Phencyclidine Screen, Urine NEGATIVE (NEGATIVE)
[2020-04-16] MEDS: ENOXAPARIN SOD 100 MG/1 ML SYRINGE SC SCH ×2 (16:07→21:18)
[2020-04-16] MEDS ORDERED: REMDESIVIR 200 MG in NS 210ml LOADING DOSE ADULT IV ONE (17:00)
[2020-04-16] MEDS: LORazepam 0.5 MG TAB PO PRN (17:08)
[2020-04-16] MEDS: ALBUTEROL SULF HFA 90MCG INH 200DOSE IN PRN (19:46)
[2020-04-16] MEDS: NORTRIPTYLINE HCL 10 MG CAP PO SCH (21:18)
[2020-04-16] MEDS: ONDANSETRON HCL 4 MG/2 ML VIAL IV PRN (21:58)
[2020-04-17] MEDS: SODIUM CHLOR 0.9% PF (SALINE LOCK) 10ML VIAL/SYR IV SCH ×3 (06:00→22:00)
[2020-04-17] MEDS: LEVOTHYROXINE SODIUM 100 MCG TAB PO SCH (06:33)
[2020-04-17] MEDS: ACCU-CHEK COMFORT CURVE STRIP VI SCH ×4 (06:34→22:00)
[2020-04-17] MEDS: InsuLIN REG 1unit/0.01ml Soln (100units/ml) SC SCH ×4 (06:34→22:39)
[2020-04-17 07:19] LABS: Basophils # (auto) 0 10 ^3/uL (0-0.2); Basophils % (auto) 0.1 % (0.0-2.0); Eosinophils # (auto) 0 10 ^3/uL (0-0.8); Hemoglobin 14.1 g/dL (12.2-16.2); Lymphocytes # (auto) 0.9 10 ^3/uL (0.4-5.4); White Blood Cell 8.9 10^3/uL (4.4-10.8)
[2020-04-17 07:21] LABS: Hematocrit 42.4 % (36.0-46.0); Lymphocytes % (auto) 9.8 % (10.0-50.0); Mean Corpuscular Hemoglobin 29.3 pg (28.0-32.0); Mean Corpuscular Hgb Conc. 33.3 g/dL (32.0-36.0); Mean Corpuscular Volume 87.8 fL (80.0-100.0); Monocytes # (auto) 1.5 10 ^3/uL (0-1.3); Monocytes % (auto) 16.9 % (0.0-12.0); Neutrophils # (auto) 6.5 10 ^3/uL (1.6-8.6); Neutrophils % (auto) 73.2 % (37.0-80.0); Nucleated Red Blood Cells % 0.2 %; Platelet Count (auto) 471 10^3/uL (140-450); Red Blood Cells 4.83 10^6/uL (4.0-5.20); Red Cell Distribution Width 12.9 % (11.8-14.3)
[2020-04-17 07:40] LABS: Potassium 4.5 mmol/L (3.5-5.1)
[2020-04-17 07:48] LABS: Albumin 2.7 g/dL (3.4-5.0); BUN/Creatinine Ratio 20.5; Bilirubin, Total 0.6 mg/dL (0.2-1.0); Calcium 9.2 mg/dL (8.5-10.1); Total Protein 7.8 g/dL (6.4-8.2)
[2020-04-17] MEDS: CALCIUM W/VIT D (600MG/400IU) TAB PO SCH (08:37)
[2020-04-17] MEDS: LORazepam 0.5 MG TAB PO PRN ×2 (08:49→15:29)
[2020-04-17] MEDS ORDERED: ASPirin 81 mg TAB PO SCH (10:00)
[2020-04-17] MEDS: BUDESONIDE (INHALATION) 180 MCG IH IN SCH ×2 (10:00→22:00)
[2020-04-17 10:02] VITALS: BP 170/66
[2020-04-17 10:17] VITALS: BP 148/47
[2020-04-17 11:17] VITALS: BP 139/70
[2020-04-17 11:55] VITALS: BP 175/75
[2020-04-17] MEDS: FUROSEMIDE 40 MG/4 ML VIAL IV SCH (12:00)
[2020-04-17] MEDS: DexAMETHasone SOD PHOS 10MG/1ML VIAL INJ IV SCH (12:00)
[2020-04-17] MEDS: levoFLOXacin 750MG 150 ML IV SCH (12:08)
[2020-04-17] MEDS: ENOXAPARIN SOD 100 MG/1 ML SYRINGE SC SCH ×2 (12:08→22:38)
[2020-04-17] MEDS: FLUoxetine HCL 20 MG CAP PO SCH (12:09)
[2020-04-17] MEDS: METOPROLOL SUCCINATE XL 50 MG TAB PO SCH (12:09)
[2020-04-17] MEDS: ZINC SULFATE 220mg CAP or TAB PO SCH (12:09)
[2020-04-17] MEDS: ASCORBIC ACID 1,000 MG TAB PO SCH (12:09)
[2020-04-17] MEDS: CHOLECALCIFEROL (VITD3) 2,000 UNIT CAP PO SCH (12:10)
[2020-04-17] MEDS ORDERED: LEVOTHYROXINE SODIUM 100 MCG/5 ML INJ IV ONE (12:15)
[2020-04-17] MEDS ORDERED: LABETALOL HCL 5 MG/ML 4ML SYRINGE IV PRN ×2 (12:15)
[2020-04-17] MEDS: ALBUTEROL SULF HFA 90MCG INH 200DOSE IN PRN (13:08)
[2020-04-17] MEDS: MORPHINE SULF INJ 2 MG/ML SYRINGE 1ML IV PRN (14:33)
[2020-04-17] MEDS: ONDANSETRON HCL 4 MG/2 ML VIAL IV PRN (14:34)
[2020-04-17] MEDS ORDERED: FUROSEMIDE 40 MG/4 ML VIAL IV ONE (16:00)
[2020-04-17] MEDS: REMDESIVIR 100 MG in SODIUM CHL 0.9% 250 ML IV SCH (17:57)
[2020-04-17] MEDS ORDERED: LORazepam 2MG/ML-1ML VIAL IV ONE (20:15)
[2020-04-17] MEDS: NORTRIPTYLINE HCL 10 MG CAP PO SCH ×2 (22:00→22:38)
[2020-04-17] MEDS: FAMOTIDINE (10MG/ML) 2ML VL IV SCH (22:37)
[2020-04-18] MEDS: SODIUM CHLOR 0.9% PF (SALINE LOCK) 10ML VIAL/SYR IV SCH ×2 (06:10→14:00)
[2020-04-18] MEDS: InsuLIN REG 1unit/0.01ml Soln (100units/ml) SC SCH ×2 (07:00→11:30)
[2020-04-18] MEDS: ACCU-CHEK COMFORT CURVE STRIP VI SCH ×3 (07:06→17:17)
[2020-04-18 07:35] VITALS: BP 155/64
[2020-04-18] MEDS ORDERED: SUCCINYLCHOLINE CHLORIDE 20 MG/ML 10ML VIAL IV ONE ×3 (09:30→12:31)
[2020-04-18] MEDS ORDERED: ETOMIDATE (2MG/ML) 20ML VIAL IV ONE ×3 (09:30→12:31)
[2020-04-18] MEDS ORDERED: SODIUM BICARBONATE 50ML VIAL 150 ML in SOD CHL 0.45% 1,000 ML IV SCH (09:45)
[2020-04-18] MEDS ORDERED: dilTIAZem 125mg/125ml BAG KIT 125 ML IV SCH (09:45)
[2020-04-18] MEDS ORDERED: dilTIAZem 25 MG/5 ML VIAL IV ONE (09:45)
[2020-04-18] MEDS: CHOLECALCIFEROL (VITD3) 2,000 UNIT CAP PO SCH (10:00)
[2020-04-18] MEDS: FLUoxetine HCL 20 MG CAP PO SCH (10:00)
[2020-04-18] MEDS: ZINC SULFATE 220mg CAP or TAB PO SCH (10:00)
[2020-04-18] MEDS: FUROSEMIDE 40 MG/4 ML VIAL IV SCH (10:35)
[2020-04-18] MEDS: DexAMETHasone SOD PHOS 10MG/1ML VIAL INJ IV SCH (10:35)
[2020-04-18] MEDS: LEVOTHYROXINE SODIUM 100 MCG/5 ML INJ IV SCH (10:36)
[2020-04-18] MEDS: levoFLOXacin 750MG 150 ML IV SCH (10:36)
[2020-04-18] MEDS: ASCORBIC ACID 1,000 MG TAB PO SCH (10:37)
[2020-04-18] MEDS: MIDAZOLAM DRIP 50 mg/50mL 50 ML IV SCH ×3 (10:37→22:41)
[2020-04-18] MEDS: ENOXAPARIN SOD 100 MG/1 ML SYRINGE SC SCH ×2 (10:37→22:00)
[2020-04-18] MEDS: METOPROLOL SUCCINATE XL 50 MG TAB PO SCH (10:37)
[2020-04-18] MEDS ORDERED: SODIUM BICARBONATE 8.4 % INJ 50ML VIAL IV ONE (11:00)
[2020-04-18 12:37] VITALS: BP 125/60
[2020-04-18 12:54] VITALS: BP 117/48
[2020-04-18] MEDS ORDERED: PROPOFOL 100 ML IV ONE (13:12)
[2020-04-18] MEDS: BUDESONIDE (INHALATION) 180 MCG IH IN SCH (13:31)
[2020-04-18] MEDS: PROPOFOL 100 ML IV SCH ×2 (13:45→22:30)
[2020-04-18 14:14] LABS: Basophils # (auto) 0 10 ^3/uL (0-0.2); Eosinophils # (auto) 0 10 ^3/uL (0-0.8); Lymphocytes # (auto) 0.2 10 ^3/uL (0.4-5.4)
[2020-04-18 14:16] LABS: Hematocrit 36.4 % (36.0-46.0); Hemoglobin 11.9 g/dL (12.2-16.2); Lymphocytes % (auto) 1.7 % (10.0-50.0); Mean Corpuscular Hemoglobin 28.3 pg (28.0-32.0); Mean Corpuscular Hgb Conc. 32.7 g/dL (32.0-36.0); Mean Corpuscular Volume 86.6 fL (80.0-100.0); Monocytes # (auto) 1.5 10 ^3/uL (0-1.3); Monocytes % (auto) 9.9 % (0.0-12.0); Neutrophils # (auto) 13.2 10 ^3/uL (1.6-8.6); Neutrophils % (auto) 88.4 % (37.0-80.0); Nucleated Red Blood Cells % 0.2 %; Platelet Count (auto) 588 10^3/uL (140-450); Red Blood Cells 4.21 10^6/uL (4.0-5.20); Red Cell Distribution Width 13.1 % (11.8-14.3); White Blood Cell 14.9 10^3/uL (4.4-10.8)
[2020-04-18 14:34] LABS: Albumin 2.4 g/dL (3.4-5.0); Calcium 8.6 mg/dL (8.5-10.1); Potassium 4.4 mmol/L (3.5-5.1)
[2020-04-18 14:44] LABS: BUN/Creatinine Ratio 24.2; Bilirubin, Total 0.5 mg/dL (0.2-1.0); Total Protein 6.6 g/dL (6.4-8.2)
[2020-04-18] MEDS ORDERED: PHENYLEPHRINE IV 250 ML IV SCH (16:00)
[2020-04-18] MEDS ORDERED: AMIODARONE HCL 150 MG in D5W 5% 100 ML IV ONE (16:30)
[2020-04-18] MEDS ORDERED: AMIODARONE 450mg/250ml AE 250 ML IV SCH (16:45)
[2020-04-18] MEDS: PHENYLEPHRINE IV 250 ML IV SCH ×3 (17:06→23:41)
[2020-04-18] MEDS: REMDESIVIR 100 MG in SODIUM CHL 0.9% 250 ML IV SCH (17:14)
[2020-04-18] MEDS ORDERED: NOREPINEPHRINE 8 MG/250ML KIT 250 ML IV ONE (18:03)
[2020-04-18] MEDS: NOREPINEPHRINE 8 MG/250ML KIT 250 ML IV SCH ×2 (18:10→22:45)
[2020-04-18] MEDS: FREE WATER GT SCH (18:41)
[2020-04-18 19:04] VITALS: BP 105/86
[2020-04-18 22:19] VITALS: BP 72/68
[2020-04-19] VITALS (51 sets, daily range): BP systolic 36–116; BP diastolic 12–244
--- NOTE | 2020-04-19 00:40 | NUR ---
Patient arrived to ICU bed 11 via gurney from ER. VS 102.2 Rectal, HR 114 A-Fib, RR 44, BP 36/18. Patient intubated with ETT 7.5 at 20 CM L/L to vent. Vent Settings: AC 18 FiO2 100% Vt 500 PEEP 10. IVF: Levophed drip at 30 mcg/min; Propofol drip at 5 mcg/kg/min; Neosynephrine at 180 mcg/min; Versed drip at 15 mg/hr; Amio drip at 1 mg/hr.
[2020-04-19] MEDS ORDERED: SODIUM BICARBONATE 8.4% INJ 50ML SYRINGE ONE ×2 (00:58→01:05)
[2020-04-19] MEDS ORDERED: VASOPRESSIN 20 UNIT/ML ONE (00:59)
[2020-04-19] MEDS: SODIUM CHLOR 0.9% PF (SALINE LOCK) 10ML VIAL/SYR IV SCH ×2 (01:00→08:00)
[2020-04-19] MEDS: ACCU-CHEK COMFORT CURVE STRIP VI SCH ×2 (01:00→07:00)
[2020-04-19] MEDS: BUDESONIDE (INHALATION) 180 MCG IH IN SCH ×2 (01:00→06:31)
[2020-04-19] MEDS: NORTRIPTYLINE HCL 10 MG CAP PO SCH (01:00)
[2020-04-19] MEDS: InsuLIN REG 1unit/0.01ml Soln (100units/ml) SC SCH ×3 (01:00→07:00)
[2020-04-19] MEDS: AMIODARONE 450mg/250ml AE 250 ML IV SCH (01:00)
[2020-04-19] MEDS: FREE WATER GT SCH ×2 (01:00→02:00)
[2020-04-19] MEDS: FAMOTIDINE (10MG/ML) 2ML VL IV SCH (01:00)
--- NOTE | 2020-04-19 01:00 | NUR ---
IVF NS 1000 ml bolus given.
--- NOTE | 2020-04-19 01:00 | NUR ---
CRITICAL ABG RESULTS REPORTED TO Pita BUENROSTRO. NEW NURSING ORDERS GIVEN TO EMILEE SANTAMARIA,REPEAT ABG IN 1 HR.
--- NOTE | 2020-04-19 01:00 | NUR ---
Amio drip changed to new bag. Amio decrease to 0.5 mg/hr.
--- NOTE | 2020-04-19 01:00 | NUR ---
Critical lab: HGB 5.6, K+ 6.0, Lactate 14.7. Hospitalist notified. Orders received.
[2020-04-19] MEDS: PROPOFOL 100 ML IV SCH ×4 (01:10→05:00)
--- NOTE | 2020-04-19 01:10 | NUR ---
Propofol drip increase to 9.996 mcg/kg/min.
[2020-04-19] MEDS ORDERED: SODIUM BICARBONATE 50ML VIAL 150 ML in SOD CHL 0.45% 1,000 ML IV SCH (01:15)
[2020-04-19] MEDS ORDERED: SODIUM BICARBONATE 8.4 % INJ 50ML VIAL IV ONE ×3 (01:15→08:00)
--- NOTE | 2020-04-19 01:15 | NUR ---
Na Bicarb 3 amps IVP given. Na Bicarb drip with 150 meq/150 ml infusion started TRA 150 ml/hr
[2020-04-19 01:59] LABS: Basophils # (auto) 0 10 ^3/uL (0-0.2); Basophils % (auto) 0.1 % (0.0-2.0); Eosinophils # (auto) 0 10 ^3/uL (0-0.8); Eosinophils % (auto) 0.1 % (0.0-7.0); Hematocrit 18.4 % (36.0-46.0); Lymphocytes # (auto) 0.4 10 ^3/uL (0.4-5.4); Lymphocytes % (auto) 3.2 % (10.0-50.0); Mean Corpuscular Hemoglobin 28.4 pg (28.0-32.0); Mean Corpuscular Hgb Conc. 31.9 g/dL (32.0-36.0); Mean Corpuscular Volume 88.9 fL (80.0-100.0); Monocytes # (auto) 1.1 10 ^3/uL (0-1.3); Monocytes % (auto) 9.9 % (0.0-12.0); Neutrophils # (auto) 9.9 10 ^3/uL (1.6-8.6); Neutrophils % (auto) 86.7 % (37.0-80.0); Nucleated Red Blood Cells % 1.5 %; Platelet Count (auto) 398 10^3/uL (140-450); Red Blood Cells 2.07 10^6/uL (4.0-5.20); Red Cell Distribution Width 13.5 % (11.8-14.3); White Blood Cell 11.4 10^3/uL (4.4-10.8)
--- NOTE | 2020-04-19 02:00 | NUR ---
Free water 150 ml given.
[2020-04-19 02:01] LABS: Hemoglobin 5.9 g/dL (12.2-16.2)
[2020-04-19 02:13] LABS: BUN/Creatinine Ratio 15.7; Calcium 6.9 mg/dL (8.5-10.1); Magnesium 2.5 mg/dL (1.6-2.6)
[2020-04-19 02:22] LABS: INR 2.55 (0.9-1.15)
[2020-04-19 02:23] LABS: Partial Thromboplastin Time 49.5 sec (23.0-31.2)
[2020-04-19 02:32] LABS: Lactic Acid w/Reflex 14.4 mmol/L (0.4-2.0)
[2020-04-19] MEDS ORDERED: DEXTROSE (50%) 50ML SYRG IV ONE (02:45)
[2020-04-19] MEDS ORDERED: EPINEPHrine HCL 250 ML IV SCH (02:45)
[2020-04-19] MEDS ORDERED: InsuLIN REG 1unit/0.01ml Soln (100units/ml) IV ONE (02:45)
[2020-04-19] MEDS ORDERED: SODIUM BICARBONATE 8.4% INJ 50ML SYRINGE IV ONE (02:45)
[2020-04-19] MEDS ORDERED: SODIUM CHLORIDE 0.9% 1,000 ML IV ONE (02:45)
[2020-04-19] MEDS ORDERED: CALCIUM GLUC 4.65meq/50ml D5AE 50 ML IV ONE (02:45)
--- NOTE | 2020-04-19 02:45 | NUR ---
Ca Gluconate 4.65 meq IVPB given, D50 1 amp IVP given, Na Bicarb 1 amp IVP given, Regular Insulin 120 units IVP given.
[2020-04-19] MEDS ORDERED: SODIUM CHLORIDE 0.9% 2,000 ML IV ONE (03:00)
[2020-04-19] MEDS ORDERED: VANCOMYCIN PER PHARMACY 0 MG IV SCH (03:00)
[2020-04-19] MEDS ORDERED: VANCOMYCIN HCL 1000 MG VL IR ONE (03:00)
[2020-04-19] MEDS ORDERED: PIPERACILLIN-TAZOB 2.25GM 50 ML IV ONE (03:00)
--- NOTE | 2020-04-19 03:00 | NUR ---
IVF 2000 ml bolus started.
--- NOTE | 2020-04-19 03:00 | NUR ---
Zosyn 2.25 Gm IVPB given.
[2020-04-19] MEDS ORDERED: VANCOMYCIN 1GM/250ML 250 ML IV ONE (03:15)
--- NOTE | 2020-04-19 03:15 | NUR ---
Vancomycin 1 Gm IVPB given.
[2020-04-19] MEDS: PHENYLEPHRINE IV 250 ML IV SCH ×2 (03:45→06:19)
--- NOTE | 2020-04-19 03:45 | NUR ---
Neosynephrine drip changed to new bag.
[2020-04-19] MEDS: MIDAZOLAM DRIP 50 mg/50mL 50 ML IV SCH ×3 (04:46→06:31)
--- NOTE | 2020-04-19 05:00 | NUR ---
Propofol drip increase to 14.99 mcg/kg/min.
[2020-04-19] MEDS ORDERED: FUROSEMIDE 40 MG/4 ML VIAL IV SCH (06:00)
--- NOTE | 2020-04-19 06:10 | NUR ---
Levophed drip and neosynephrine changed to new bags.
[2020-04-19] MEDS: NOREPINEPHRINE 8 MG/250ML KIT 250 ML IV SCH (06:15)
--- NOTE | 2020-04-19 06:33 | NUR ---
Versed changed to new bag
--- NOTE | 2020-04-19 06:35 | NUR ---
Increased FIO2 to 60%, notified RN
--- NOTE | 2020-04-19 06:54 | NUR ---
Paged hospitalist, awaiting call back
--- NOTE | 2020-04-19 07:01 | NUR ---
Paged hospitalist for 2nd attempt, awaiting call back
--- NOTE | 2020-04-19 07:30 | NUR ---
REPORT REPORT RECEIVED FROM FLORIAN VINES RN. VIEWED PT THROUGH [facility] + FOR COVID. PT INTUBATED AND SEDATED AND ON 3 PRESSORS AT MAXIMUM DOSE.
--- NOTE | 2020-04-19 07:53 | NUR ---
ASSESSMENT PT IN COVID ISOLATION. PT RESTING WITH EYES CLOSED. MODERATELY SEDATED ON VERSED AND PROPOFOL. Addendum: 04/19/20 at 1454 by Allison Carlin RN INTUBATED WITH 8 FR ETT/24 AT THE LIP, TV 500, 60% FIO2 AND PEEP OF 5. LUNGS CLEAR AND DIMINISHED THROUGHOUT. O2 SAT OF 87%. TELE SR 67. PALPABLE PULSES TO ALL EXTREMITIES. NO EDEMA NOTED. SCDS TO BLE. ABD SOFT WITH HYPOACTIVE BOWEL SOUNDS. LEFT NARES NGT WITH PLACEMENT VERIFIED AND NO RESIDUAL NOTED. LEW CATHETER DRAINING CLEAR YELLOW URINE. UNABLE TO TURN PT TOO UNSTABLE. CURRENTLY ON LEVOPHED, NEOSYNEPHRINE AND VASOPRESSIN FOR BP SUPPORT. CONTINUE TO MONITOR.
[2020-04-19] MEDS ORDERED: VASOPRESSIN 50 UNITS in D5W 5% 247.5 ML IV SCH (08:00)
[2020-04-19 08:01] LABS: Albumin 1.5 g/dL (3.4-5.0); Bilirubin, Total 0.7 mg/dL (0.2-1.0); Total Protein 4.3 g/dL (6.4-8.2)
[2020-04-19] MEDS ORDERED: ALBUMIN 25% 100 ML IV SCH (08:15)
--- NOTE | 2020-04-19 08:46 | NUR ---
WOUND CARE NOTE: Added patient to wound care list due to intubation status,putting patient to high risk for skin breakdown. Patient is 74 years old female with admitting diagnosis of Severe Sepsis Secondary to Acute CoVid19,Pneumonia. Patient is resting in ICU low air loss bed in Rm. 111. Patient is intubated, sedated and mechanically ventilated. Patient appears to be in no pain using Camarena Pizano Faces Pain Scale. Patient admitted to ICU with Rt groin/thigh ecchymosis/hematoma, reports due to arterial line/central line; MD aware. Unable to turn patient at this time due to "patient is unstable to turn" per patient's nurse. RECOMMENDATION: Nursing to continue with BID/PRN cleaning and application of Barrier cream to sacral buttocks as preventative, Monitor Rt thigh hematoma, frequent turning and repositioning schedule as condition permits, redistribute pressure points with pillows, elevate heels on pillows, continue monitoring by wound care while patient is intubated and Jaime score is <18. Addendum: 04/19/20 at 1301 by Shantal Stark RN Amended: Links added.
[2020-04-19 08:51] LABS: Basophils # (auto) 0 10 ^3/uL (0-0.2); Lymphocytes # (auto) 0.5 10 ^3/uL (0.4-5.4); Neutrophils % (auto) 89.3 % (37.0-80.0)
[2020-04-19 08:52] LABS: Basophils % (auto) 0.2 % (0.0-2.0); Eosinophils # (auto) 0.1 10 ^3/uL (0-0.8); Eosinophils % (auto) 0.5 % (0.0-7.0); Hematocrit 21.3 % (36.0-46.0); Lymphocytes % (auto) 2.8 % (10.0-50.0); Mean Corpuscular Hemoglobin 27.8 pg (28.0-32.0); Mean Corpuscular Hgb Conc. 30.5 g/dL (32.0-36.0); Mean Corpuscular Volume 91.2 fL (80.0-100.0); Monocytes # (auto) 1.2 10 ^3/uL (0-1.3); Monocytes % (auto) 7.2 % (0.0-12.0); Neutrophils # (auto) 15.3 10 ^3/uL (1.6-8.6); Platelet Count (auto) 429 10^3/uL (140-450); Red Blood Cells 2.33 10^6/uL (4.0-5.20); Red Cell Distribution Width 14.1 % (11.8-14.3); White Blood Cell 17.1 10^3/uL (4.4-10.8)
--- NOTE | 2020-04-19 09:00 | NUR ---
PT IN NEED OF BLOOD TRANSFUSION OF 2 UNTIS OF PRBC. NO IV SITE CURRENTLY AVAILABLE . CHECKING MED COMPATABILITIES TO SEE WHAT CAN GO TOGETHER TO MAKE ROOM FOR IV ANTIBIOTICS AND BLOOD TRANSFUSION.
--- NOTE | 2020-04-19 09:00 | NUR ---
NO SEDATION VACATION PT RR UP TO THE LOW 30'S Addendum: 04/19/20 at 1432 by Allison Carlin RN Amended: Links added.
[2020-04-19 09:09] LABS: Albumin 1.4 g/dL (3.4-5.0); BUN/Creatinine Ratio 14.7; Calcium 6.6 mg/dL (8.5-10.1); Potassium 5.1 mmol/L (3.5-5.1)
[2020-04-19 09:18] LABS: Bilirubin, Total 1.1 mg/dL (0.2-1.0); Total Protein 4.2 g/dL (6.4-8.2)
[2020-04-19 09:20] LABS: Hemoglobin 6.5 g/dL (12.2-16.2)
[2020-04-19] MEDS ORDERED: NOREPINEPHRINE BITARTRATE 16 MG in SODIUM CHL 0.9% 250 ML IV SCH (09:45)
[2020-04-19] MEDS ORDERED: PHENYLEPHRINE INJ 40 MG in SODIUM CHL 0.9% 250 ML IV SCH (09:45)
[2020-04-19] MEDS ORDERED: levoFLOXacin 250MG 50 ML IV SCH (10:00)
--- NOTE | 2020-04-19 10:30 | NUR ---
PER DR LENNON, HOLD OFF ON BLOOD TRANSFUSION UNTIL PT'S FAMILY DECIDES TO TERMINAL WEAN OR NOT.
[2020-04-19] MEDS: LEVOTHYROXINE SODIUM 100 MCG/5 ML INJ IV SCH (10:31)
[2020-04-19] MEDS: DexAMETHasone SOD PHOS 10MG/1ML VIAL INJ IV SCH (10:31)
[2020-04-19] MEDS ORDERED: LORazepam 2MG/ML-1ML VIAL IV PRN (11:45)
[2020-04-19] MEDS ORDERED: MORPHINE SULF INJ 2 MG/ML SYRINGE 1ML ONE (11:53)
--- NOTE | 2020-04-19 11:54 | NUR ---
PT FOR TERMINAL WEAN AND PRE MEDICATING PT WITH MORPHINE 2 MG IV.
[2020-04-19] MEDS ORDERED: MORPHINE SULF INJ 2 MG/ML SYRINGE 1ML IV PRN (12:00)
--- NOTE | 2020-04-19 12:10 | NUR ---
Pt was terminally extubated at this time, as ordered. RN aware.
--- NOTE | 2020-04-19 12:36 | NUR ---
PT PRONOUNCED BY DR LENNON. FAMILY PRESENT OUTSIDE THE ROOM. ALL BELONGINGS TAKEN FROM ROOM AND DOUBLE BAGGED AND GIVEN TO FAMILY.
--- NOTE | 2020-04-19 13:15 | NUR ---
CALLED [facility] AND REPORTED . OKAY TO RELEASE PT TO MORTUARY. CASE # [id number]
--- NOTE | 2020-04-19 13:17 | NUR ---
PHYSICIAN OFFICE REP CALLED PHYSICIAN OFFICE REP'S OFFICE AND GAVE BASIC INFO AND AWAITING A CALL BACK FROM THE PHYSICIAN OFFICE REP.
--- NOTE | 2020-04-19 15:39 | NUR ---
[employer] CALLED AND SPOKE WITH JIAN AND PROVIDED THE REQUESTED INFORMATION. SHE STATES SOMEONE WILL COME TO [facility] CHARGER THE PT IN APPROXIMATELY 45-90 MINUTES.
--- NOTE | 2020-04-19 16:58 | NUR ---
PT PICKED UP BY [facility] STAFF. ASSISTED BY PAMELA DE LEON RN.
--- NOTE | 2020-04-19 17:29 | NUR ---
SPOKE WITH PT'S DAUGHTER, DANISHA, BY PHONE, AND ET HER KNOW THAT PT WAS PICKED UP BY [employer].
== END 2020-04-19 12:36 | disposition expired | DRG 871 ==
LOC: ER 17:23 → TELE 17:24 → ICU WEST 04-19 00:37
PROVIDERS: ADMIT Hospitalist; ATTEND Internal Medicine
PROC: XW033E5 Introduction of Remdesivir Anti-infective into Peripheral Vein, Percutaneous Approach, New Technology Group 5 (ICD-10-PCS; 2020-04-16)
PROC: XW13325 Transfusion of Convalescent Plasma (Nonautologous) into Peripheral Vein, Percutaneous Approach, New Technology Group 5 (ICD-10-PCS; principal; 2020-04-17)
PROC: 5A09357 Assistance with Respiratory Ventilation, Less than 24 Consecutive Hours, Continuous Positive Airway Pressure (ICD-10-PCS; 2020-04-17)
PROC: 0BH17EZ Insertion of Endotracheal Airway into Trachea, Via Natural or Artificial Opening (ICD-10-PCS; 2020-04-18)
PROC: 5A1935Z Respiratory Ventilation, Less than 24 Consecutive Hours (ICD-10-PCS; 2020-04-18)
PROC: 06HY33Z Insertion of Infusion Device into Lower Vein, Percutaneous Approach (ICD-10-PCS; 2020-04-18)
DX: A41.89 Other specified sepsis (principal); U07.1 COVID-19; J96.01 Acute respiratory failure with hypoxia; N17.0 Acute kidney failure with tubular necrosis; D65 Disseminated intravascular coagulation [defibrination syndrome]; I21.A1 Myocardial infarction type 2; J12.89 Other viral pneumonia; R65.21 Severe sepsis with septic shock; E44.1 Mild protein-calorie malnutrition; E87.1 Hypo-osmolality and hyponatremia; E87.4 Mixed disorder of acid-base balance; I13.0 Hypertensive heart and chronic kidney disease with heart failure and stage 1 through stage 4 chronic kidney disease, or unspecified chronic kidney disease; I50.30 Unspecified diastolic (congestive) heart failure; N39.0 Urinary tract infection, site not specified; Z51.5 Encounter for palliative care; Z66 Do not resuscitate; E03.9 Hypothyroidism, unspecified; K21.9 Gastro-esophageal reflux disease without esophagitis; K29.70 Gastritis, unspecified, without bleeding; E78.5 Hyperlipidemia, unspecified; F32.9 Major depressive disorder, single episode, unspecified; B96.20 Unspecified Escherichia coli [E. coli] as the cause of diseases classified elsewhere; E11.22 Type 2 diabetes mellitus with diabetic chronic kidney disease; E11.40 Type 2 diabetes mellitus with diabetic neuropathy, unspecified; E11.65 Type 2 diabetes mellitus with hyperglycemia; E66.01 Morbid (severe) obesity due to excess calories; Z68.37 Body mass index [BMI] 37.0-37.9, adult; N18.9 Chronic kidney disease, unspecified; Z79.4 Long term (current) use of insulin; Z79.899 Other long term (current) drug therapy; Z86.73 Personal history of transient ischemic attack (TIA), and cerebral infarction without residual deficits; Z90.710 Acquired absence of both cervix and uterus
CPT/HCPCS: 36415; 36600; 71045; 80048; 80053; 80061; 80202; 80307; 81001; 82040; 82247; 82728; 82805; 82962; 83036; 83605; 83615; 83735; 83880; 84075; 84155; 84443; 84450; 84460; 84484; 85025; 85379; 85610; 85730; 86141; 86850; 86900; 86901; 86920; 87040; 87070; 87081; 87086; 87088; 87186; 87205; 87426; 87804; 94002; 94003; 94640; G0378; J0171; J0330; J0610; J1100; J1815; J1956; J2250; J2405; J2543; J2704; J3490; J7060; P9047